=== PATIENT | male | born 1995 | race Caucasian/White ===

== ENCOUNTER 2020-12-01 10:30 | Emergency (ER) | payer OTHER, SELFPAY ==
--- NOTE | 2020-12-01 10:32 | ED.SKABFB ---
HPI - Skin/Abscess/Foreign Bdy General Chief complaint: Skin/Abscess/Foreign Body Stated complaint: Skin complaint Time Seen by Provider: 12/01/20 10:32 Source: patient and RN notes reviewed History of Present Illness HPI narrative: Patient is a 25-year-old male who presents the urgent care with complaints of an itchy rash to the bilateral rest, fingers and behind the knees. Patient states that he had it sometime ago and it went away within a few days . Patient states that he noticed this approximately 2 days ago and he has done nothing [id number] for her symptoms. Patient denies of anyone else in the home having the rash. No other acute complaints. No acute distress noted. Patient aware of the plan of care. Some parts of this dictation were generated by voice recognition software and may contain typographical and/or grammatical inaccuracies. Related Data Allergies Allergy/AdvReac Type Severity Reaction Status Date / Time Penicillins Allergy Intermediate Hives Verified 12/01/20 10:45 Review of Systems Review of Systems: CONSTITUTIONAL: Denies fever, chills, or sweats. EYES: Denies visual changes, redness, or discharge. ENT: Denies rhinorrhea, congestion, sore throat, or otalgia. CARDIOVASCULAR: Denies chest pain, palpitations, or edema. RESPIRATORY: Denies cough or dyspnea. GASTROINTESTINAL: Denies abdominal pain, nausea, vomiting, or diarrhea. GENITOURINARY: Denies dysuria or hematuria. SKIN: Reports of an itchy rash to the bilateral wrists, behind the knees and fingers MUSCULOSKELETAL: Denies back pain, joint pain, or myalgia. NEUROLOGIC: Denies headache, numbness, or weakness. All other systems reviewed are negative, except as documented in HPI. PMFSH Comments At the time of my signature, I reviewed and agree with the nursing past medical, surgical, social, and family history. There is no relevant family history pertinent to the patient complaint. Exam Narrative: GENERAL: This is a well-nourished, well-developed patient, in no apparent distress. HEAD: normocephalic, atraumatic. EYES: PERRL. Sclera clear/white. Vision is grossly intact. EARS: External ears normal NOSE: External nose normal with no obvious nasal discharge, nares without redness, no rhinorrhea. THROAT: Mucous membranes moist NECK: Neck supple CARDIOVASCULAR: Regular rate and rhythm without murmurs, gallops, or rubs. RESPIRATORY: Clear to auscultation. Breath sounds equal bilaterally. No wheezes, rales, or rhonchi. SKIN: Scattered dried and vesicular dermatitis noted to bilateral wrists, 2 areas on the fingers, and behind the knees NEURO: awake, alert, and oriented to person, place and time. There were no obvious focal neurologic abnormalities. EXTREMITIES: No clubbing, cyanosis, or edema. Course Vital Signs Vital signs: Vital Signs Temperature 98.1 F 12/01/20 10:38 Pulse Rate 75 12/01/20 10:38 Respiratory Rate 20 12/01/20 10:38 Blood Pressure 119/75 12/01/20 10:38 Pulse Oximetry 100 12/01/20 10:38 Temperature 98.1 F 12/01/20 10:38 Pulse Rate 75 12/01/20 10:38 Respiratory Rate 20 12/01/20 10:38 Blood Pressure 119/75 12/01/20 10:38 Pulse Oximetry 100 12/01/20 10:38 Reviewed MDM - Skin/Abscess/Foreign Bdy MDM Narrative Medical decision making narrative: Advised the patient to use the prescription cream to the affected areas as directed. Cover them with a Band-Aid. Rash does appear to be molluscum in nature however rash does not typically occur in adults. Advised the patient to follow-up with his PCP within 2 to 5 days or for worsening symptoms or failure to improve. Differential Diagnosis Differential diagnosis: Likely abscess of skin or subcutaneous tissue, urticaria, allergic reaction to drug, insect bites and contact dermatitis Critical Care Time Critical Care Time Critical Care Time: No Discharge Plan Discharge Clinical Impression: Contact dermatitis Qualifiers: Contact dermatitis type: unspec
[2020-12-01 10:38] VITALS: BP 119/75; PULSE 75; RESP 20; TEMP 36.7; O2SAT 100
== END 2020-12-01 10:55 | disposition home or self-care (01) ==
PROVIDERS: Emergency Provider Nurse Practitioner Family
DX: L25.9 Unspecified contact dermatitis, unspecified cause (principal)
CPT/HCPCS: 99213; G0463